=== PATIENT | male | born 1955 | race American Indian/Alaskan Native ===

== ENCOUNTER 2021-07-13 18:38 | Emergency (ER) | payer MEDICARE ==
--- NOTE | 2021-07-13 18:59 | Emergency Department Report ---
ED Lower Extremity HPI - General Chief Complaint: Wound/Laceration Stated Complaint: FOOT INJURY Time Seen by Provider: 07/13/21 18:57 Source: family Mode of arrival: Wheelchair Limitations: Physical Limitation - History of Present Illness Initial Comments: 58-year-old male was getting into the bathtub and accidentally struck foot on a hard area while in the process striking the toe resulting in bleeding pain and abnormal x-ray hallux. Pain is dull throbbing worse with palpation range of motion of bleeding does still continue it has improved MD Complaint: foot injury -: Sudden Injury: Toes: Left Type of Injury: blunt Severity: moderate Improves With: nothing Worsens With: nothing Context: direct blow Associated Symptoms: swelling - Related Data Previous Rx's Medication Instructions Recorded Last Taken Type Chlorhexidine Gluconate [Hibiclens] 10 ml TP BID #240 liquid 07/13/21 Unknown Rx traMADoL [Ultram] 50 mg PO Q6HR PRN #20 tablet 07/13/21 Unknown Rx ED Review of Systems ROS: Stated complaint: FOOT INJURY Other details as noted in HPI Comment: All other systems reviewed and negative ED Past Medical Hx - Past Medical History Previous Medical History?: Yes - Surgical History Past Surgical History?: No - Medications Home Medications: Home Medications Medication Instructions Recorded Confirmed Last Taken Type Chlorhexidine Gluconate [Hibiclens] 10 ml TP BID #240 liquid 07/13/21 Unknown Rx traMADoL [Ultram] 50 mg PO Q6HR PRN #20 tablet 07/13/21 Unknown Rx ED Physical Exam - General Limitations: Physical Limitation General appearance: alert, in no apparent distress - Head Head exam: Present: atraumatic, normocephalic - Eye Eye exam: Present: normal appearance, PERRL, EOMI - ENT ENT exam: Present: mucous membranes moist - Neck Neck exam: Present: normal inspection - Respiratory Respiratory exam: Present: normal lung sounds bilaterally. Absent: respiratory distress - Cardiovascular Cardiovascular Exam: Present: regular rate, normal rhythm. Absent: systolic murmur, diastolic murmur, rubs, gallop - GI/Abdominal GI/Abdominal exam: Present: soft, normal bowel sounds - Rectal Rectal exam: Present: deferred - Extremities Exam Extremities exam: Present: normal inspection - Back Exam Back exam: Present: normal inspection - Neurological Exam Neurological exam: Present: alert, oriented X3, CN II-XII intact - Psychiatric Psychiatric exam: Present: normal affect, normal mood - Skin Skin exam: Present: warm, dry, intact, normal color. Absent: rash ED Course Vital Signs 07/13/21 18:41 Pulse Rate 85 Blood Pressure 147/94 O2 Sat by Pulse 97 Oximetry ED Lower Extremity MDM - Radiology Data Radiology results: report reviewed No fracture or dislocation noted Critical care attestation.: If time is entered above; I have spent that time in minutes in the direct care of this critically ill patient, excluding procedure time. ED Disposition Clinical Impression: Avulsion of toenail of left foot Disposition: HOME / SELF CARE / HOMELESS Is pt being admited?: No Does the pt Need Aspirin: No Condition: Stable Instructions: Wound Care, Adult Additional Instructions: Remove toenail issue to follow your primary care provider or podiatry to evaluate the healing of the area please keep wound clean antibacterial soap and water and utilize antibiotics as needed. Prescriptions: Chlorhexidine Gluconate [Hibiclens] 10 ml TP BID #240 liquid traMADoL [Ultram] 50 mg PO Q6HR PRN #20 tablet PRN Reason: Pain Referrals: [facility] [Provider Group] - 3-5 Days PRIMARY CARE, [Primary Care Provider] - 3-5 Days
--- NOTE | 2021-07-13 20:18 | XRay Report ---
LEFT TOE(S) 3 VIEW(S) INDICATION / CLINICAL INFORMATION: blunt trauma hallux pain and bruising COMPARISON: None available. FINDINGS: BONES / JOINT(S): No acute fracture or subluxation. 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 SOFT TISSUES: Soft tissue swelling of the great toe. ADDITIONAL FINDINGS: None. Signer Name: Jeff Dias MD Signed: 07/13/2021 8:14 PM Workstation Name: [id number]
[2021-07-13 21:46] VITALS: BP 157/98
== END 2021-07-13 21:45 | disposition home or self-care (01) ==
LOC: ED 18:38
DX: S91.202A Unspecified open wound of left great toe with damage to nail, initial encounter (principal); Z98.890 Other specified postprocedural states; W22.8XXA Striking against or struck by other objects, initial encounter; Y93.89 Activity, other specified; Y92.89 Other specified places as the place of occurrence of the external cause; Y99.8 Other external cause status
CPT/HCPCS: 99283